=== PATIENT | male | born 1965 | race Caucasian/White ===

== ENCOUNTER 2021-09-21 18:46 | Emergency (ER) | payer OTHER ==
[2021-09-21 19:29] LABS: BASOPHIL 0.2 % (0-2); EOSINOPHIL 0.1 % (0-5); HCT 40.1 % (42.0-52.0); HGB 13.5 g/dl (13.2-18.0); LYMPHOCYTE 5.4 % (15-48); MCH 32.2 pg (25.0-31.0); MCHC 33.7 g/dL (32.0-36.0); MCV 95.7 fL (78.0-100.0); MONOCYTE 11.1 % (0-12); MPV 10.6 fL (6.0-9.5); NEUTROPHIL 82.5 % (41-80); NRBC 0; PLT 402 K/uL (150-400); RBC 4.19 M/uL (4.70-6.00); RDW 14.6 % (11.5-14.0)
[2021-09-21 19:31] LABS: WBC 24.6 K/uL (4.0-10.5)
[2021-09-21 19:55] LABS: BILIRUBIN - TOTAL 0.4 mg/dL (0.2-1.0); CREATININE 11.41 mg/dL (0.67-1.17); GLOBULIN (CALCULATION) 4.3 g/dL; POTASSIUM 4.8 mmol/L (3.5-5.1); TOTAL PROTEIN 7.3 g/dL (6.4-8.2)
[2021-09-21 20:31] LABS: INR 1.17 (0.9-1.2); PROTHROMBIN TIME 14.6 SECONDS (11.9-13.9); PTT 33.1 SECONDS (24.9-34.6)
[2021-09-21 20:45] LABS: LACTIC ACID 1.8 mmol/L (0.4-1.9)
== END 2021-09-21 21:30 | disposition other institution (70) ==
LOC: FER 18:46
PROVIDERS: Emergency Medicine
DX: I71.00 Dissection of unspecified site of aorta (principal); N17.9 Acute kidney failure, unspecified; I10 Essential (primary) hypertension; I25.10 Atherosclerotic heart disease of native coronary artery without angina pectoris; E11.9 Type 2 diabetes mellitus without complications; F17.200 Nicotine dependence, unspecified, uncomplicated; Z28.310 Unvaccinated for COVID-19; Z95.5 Presence of coronary angioplasty implant and graft
CPT/HCPCS: 36415; 36600; 70450; 71045; 71250; 80053; 82803; 83605; 84145; 84484; 85025; 85610; 85730; 87040; 93005; J2370; J2930; J7030; J7040

== ENCOUNTER 2021-10-11 23:25 | Emergency (ER) | payer OTHER ==
[2021-10-12 01:06] LABS: BASOPHIL 1.3 % (0-2); EOSINOPHIL 2.7 % (0-5); HCT 40.5 % (42.0-52.0); HGB 13.4 g/dl (13.2-18.0); LYMPHOCYTE 35.4 % (15-48); MCH 32.6 pg (25.0-31.0); MCHC 33.1 g/dL (32.0-36.0); MCV 98.5 fL (78.0-100.0); MONOCYTE 10.5 % (0-12); MPV 10.6 fL (6.0-9.5); NEUTROPHIL 49.5 % (41-80); NRBC 0; PLT 505 K/uL (150-400); RBC 4.11 M/uL (4.70-6.00); RDW 14.8 % (11.5-14.0); WBC 12.1 K/uL (4.0-10.5)
[2021-10-12 01:23] LABS: ALBUMIN 3.1 g/dL (3.4-5.0); BILIRUBIN - TOTAL 0.3 mg/dL (0.2-1.0); BUN/CREAT RATIO (CALC) 31.9 RATIO; CREATININE 0.69 mg/dL (0.67-1.17); GLOBULIN (CALCULATION) 3.6 g/dL; POTASSIUM 3.9 mmol/L (3.5-5.1); TOTAL PROTEIN 6.7 g/dL (6.4-8.2)
[2021-10-12] MEDS ORDERED: BACTRIM DS TAB1 EACH PO (04:03)
[2021-10-12] MEDS ORDERED: NORCO 5-325 TA1 EACH PO (04:03)
== END 2021-10-12 04:04 | disposition home or self-care (01) ==
LOC: FER 23:25
PROVIDERS: Emergency Medicine
DX: M79.605 Pain in left leg (principal); F17.210 Nicotine dependence, cigarettes, uncomplicated; Z88.5 Allergy status to narcotic agent; Z88.8 Allergy status to other drugs, medicaments and biological substances
CPT/HCPCS: 36415; 73630; 80053; 83605; 85025; 85379